=== PATIENT | female | born 1965 | race Caucasian/White ===

== ENCOUNTER 2018-04-20 15:05 | Emergency (ER) | payer OTHER ==
[~2018-04-20] VITALS: Ht 152.4 cm; Wt 79.0 kg
[2018-04-20 15:15] VITALS: BP 110/73
[2018-04-20 15:55] LABS: BASOPHILS % (AUTO) 0.2 % (0.0-2.0); EOSINOPHILS # (AUTO) 0.1 K/uL (0-0.4); EOSINOPHILS % (AUTO) 0.8 % (0.0-4.0); HEMATOCRIT 42.7 % (36-48); LYMPHOCYTES # (AUTO) 0.9 K/uL (2.5-16.5); LYMPHOCYTES % (AUTO) 14.1 % (20.5-51.1); MEAN CORPUSCULAR HEMOGLOBIN 28 pg (27-31); MEAN CORPUSCULAR HGB CONC 33 g/dL (33-37); MEAN CORPUSCULAR VOLUME 84.3 fL (80-94); MONOCYTES # (AUTO) 0.5 K/uL (0.8-1.0); MONOCYTES % (AUTO) 8.2 % (1.7-9.3); NEUTROPHILS # (AUTO) 5.1 K/uL (1.8-7.7); NEUTROPHILS % (AUTO) 76.7 % (42.2-75.2); PLATELET COUNT (AUTO) 245 K/uL (140-450); RED BLOOD CELL COUNT(AUTO) 5.06 MIL/uL (4.20-5.40); RED CELL DISTRIBUTION WIDTH 14.1 % (11.6-13.7); WHITE BLOOD COUNT (AUTO) 6.6 K/uL (4.8-10.8)
[2018-04-20 16:02] LABS: APPEARANCE,URINE CLEAR (CLEAR); BILIRUBIN,URINE NEGATIVE (NEGATIVE); BLOOD, URINE NEGATIVE (NEGATIVE); COLOR,URINE YELLOW (YELLOW); LEUKOCYTE ESTERASE ,URINE NEGATIVE (NEGATIVE); NITRITE, URINE NEGATIVE (NEGATIVE); UGLUCOSE NEGATIVE (NEGATIVE)
--- NOTE | 2018-04-20 16:03 | NUR ---
ABD PAIN X TWO DAYS WORSE TODAY. "IT FEELS LIKE THERE IS SOMETHING IN THERE BITING ME" STATES THE PAIN IS 10/10. STATES SHE HAD A FORMED BM THIS MORNING AND A LIQUID BM THIS AFTERNOON. DENIES N/V. DENIES SOB OR CHEST PAIN. MADE AWARE OF STATUS.
[2018-04-20 16:05] LABS: ANION GAP 11.4 (8-16); CARBON DIOXIDE 29.2 mmol/L (21-32); CREATININE 0.6 mg/dL (0.6-1.3); POTASSIUM 3.6 mmol/L (3.5-5.1)
[2018-04-20 16:11] LABS: ALBUMIN 3.7 g/dL (3.4-5.0); TOTAL BILIRUBIN 0.2 mg/dL (0.0-1.0)
[2018-04-20] MEDS ORDERED: DICYCLOMINE HCL LIQUID 20 MG, ALUMINUM HYD/MAG/SIMETHICONE 30 ML, LIDOCAINE VISCOUS 2% ... PO ONE ×3 (16:40)
--- NOTE | 2018-04-20 17:00 | NUR ---
PATIENTS STATES RELIEF AFTER GI COCKTAIL. STATES THAT HER PAIN IS NOW A 5/10.
--- NOTE | 2018-04-20 17:55 | NUR ---
PATIENTS STATES SHE HAS MINIMAL PAIN AND IS READY TO GO HOME. DR JJ INFORMED.
--- NOTE | 2018-04-20 18:01 | NUR ---
DR JJ AT BEDSIDE.
--- NOTE | 2018-04-20 18:15 | NUR ---
Patient discharged with v/s stable. Written and verbal after care instructions given and explained. Patient alert, oriented and verbalized understanding of instructions. Ambulatory with steady gait. All questions addressed prior to discharge. ID band removed. Patient advised to follow up with PMD. Rx of ZOFRAN, MOTRIN, PRILOSEC given. Patient educated on indication of medication including possible reaction and side effects. Opportunity to ask questions provided and answered.
[2018-04-20 18:16] VITALS: BP 131/69
== END 2018-04-20 18:15 | disposition home or self-care (01) ==
LOC: MED 15:05
DX: R10.13 Epigastric pain (principal); R11.0 Nausea; R19.7 Diarrhea, unspecified; Z88.0 Allergy status to penicillin
CPT/HCPCS: 36415; 80053; 81003; 81025; 83690; 85025; 99284

== ENCOUNTER 2023-01-15 07:56 | Emergency (ER) | payer OTHER ==
[~2023-01-15] VITALS: Ht 157.5 cm; Wt 81.2 kg
[2023-01-15 08:02] VITALS: BP 123/94; PULSE 61; RESP 18; TEMP 97.4; O2SAT 98
[2023-01-15 10:22] LABS: BASOPHILS % (AUTO) 0.7 % (0.0-2.0); EOSINOPHILS # (AUTO) 0.2 K/uL (0-0.4); EOSINOPHILS % (AUTO) 2.2 % (0.0-4.0); HEMATOCRIT 42.1 % (36-48); HEMOGLOBIN 13.8 g/dL (12.0-16.0); LYMPHOCYTES # (AUTO) 1.9 K/uL (2.5-16.5); MEAN CORPUSCULAR HEMOGLOBIN 28 pg (27-31); MEAN CORPUSCULAR HGB CONC 33 g/dL (33-37); MEAN CORPUSCULAR VOLUME 85.1 fL (80-94); MONOCYTES # (AUTO) 0.5 K/uL (0.8-1.0); MONOCYTES % (AUTO) 7.5 % (1.7-9.3); NEUTROPHILS # (AUTO) 4.2 K/uL (1.8-7.7); NEUTROPHILS % (AUTO) 61.6 % (42.2-75.2); PLATELET COUNT (AUTO) 256 K/uL (140-450); RED BLOOD CELL COUNT(AUTO) 4.95 MIL/uL (4.20-5.40); RED CELL DISTRIBUTION WIDTH 14.4 % (11.6-13.7); WHITE BLOOD COUNT (AUTO) 6.9 K/uL (4.8-10.8)
[2023-01-15] MEDS ORDERED: KETOROLAC 30 MG/ML VIAL IM ONE (10:30)
[2023-01-15] MEDS ORDERED: LIDOCAINE 5% 1 EA PATCH TP ONE (10:30)
[2023-01-15 10:34] LABS: ALBUMIN 3.7 g/dL (3.4-5.0); ANION GAP 12.6 (8-16); CALCIUM 8.4 mg/dL (8.5-10.1); CARBON DIOXIDE 27.3 mmol/L (21-32); CREATININE 0.5 mg/dL (0.6-1.3); POTASSIUM 3.9 mmol/L (3.5-5.1); TOTAL BILIRUBIN 0.3 mg/dL (0.0-1.0); TOTAL PROTEIN, SERUM 7.7 g/dL (6.4-8.2)
[2023-01-15 11:15] VITALS: BP 122/88; PULSE 68; RESP 18; TEMP 98
[2023-01-15 11:40] VITALS: O2SAT 98
[2023-01-15] MEDS ORDERED: IBUP-2213 PO (14:25)
[2023-01-15] MEDS ORDERED: LID5T TP (14:25)
== END 2023-01-15 14:40 | disposition home or self-care (01) ==
LOC: MED 07:56
DX: R07.89 Other chest pain (principal); Z88.0 Allergy status to penicillin; Z79.899 Other long term (current) drug therapy; Z90.49 Acquired absence of other specified parts of digestive tract
CPT/HCPCS: 36415; 71045; 80053; 81002; 81025; 83690; 84484; 85025; 93005; 96372; 99285; J1885

== ENCOUNTER 2023-04-21 20:40 | Emergency (ER) | payer OTHER ==
[~2023-04-21] VITALS: Ht 154.9 cm; Wt 95.3 kg
[~2023-04-21 20:40] MED LIST: IBUP-2213 PO; LID5T TP
[2023-04-21 21:21] VITALS: BP 147/78; PULSE 82; RESP 18; TEMP 97.1; O2SAT 100
[2023-04-21] MEDS ORDERED: KETOROLAC 30 MG/ML VIAL IM ONE (22:15)
[2023-04-21] MEDS ORDERED: CAPS1ADH5 TP (23:09)
[2023-04-21] MEDS ORDERED: IBUP-2213 PO (23:09)
[2023-04-21 23:44] VITALS: BP 147/78; PULSE 82; RESP 18; TEMP 97.1; O2SAT 100
== END 2023-04-21 23:45 | disposition home or self-care (01) ==
LOC: MED 20:40
DX: S39.012A Strain of muscle, fascia and tendon of lower back, initial encounter (principal); S16.1XXA Strain of muscle, fascia and tendon at neck level, initial encounter; V49.88XA Car occupant (driver) (passenger) injured in other specified transport accidents, initial encounter; Y93.89 Activity, other specified; Y92.89 Other specified places as the place of occurrence of the external cause; Y99.8 Other external cause status
CPT/HCPCS: 72040; 72100; 96372; 99284; J1885